=== PATIENT | female | born 1965 | race American Indian/Alaskan Native ===

== ENCOUNTER 2017-06-07 00:34 | Emergency (ER) | payer MEDICARE ==
[2017-06-07 03:21] LABS: Hematocrit 38.4 % (30.3-42.9); Hemoglobin 12.7 gm/dl (10.1-14.3); Mean Corpuscular HGB Conc 33 % (30-34); Mean Corpuscular Hemoglobin 30 pg (28-32); Mean Corpuscular Volume 90 fl (79-97); Platelet Count 176 K/mm3 (140-440); Red Blood Count 4.25 M/mm3 (3.65-5.03); Red Cell Distribution Width 14.7 % (13.2-15.2); White Blood Count 8.1 K/mm3 (4.5-11.0)
[2017-06-07 03:36] LABS: Anion Gap 17 mmol/L; Blood Urea Nitrogen 8 mg/dL (7-17); Carbon Dioxide 23 mmol/L (22-30); Chloride 101.6 mmol/L (98-107); Glucose 99 mg/dL (65-100); Potassium 3.6 mmol/L (3.6-5.0); Sodium 138 mmol/L (137-145)
[2017-06-07 04:22] LABS: Basophils % (Manual) 0 % (0.0-1.8); Blastocytes % (Manual) 0 %
[2017-06-07 04:23] LABS: Diff Status Complete; Platelet Estimate Consistent w Auto
[2017-06-07] MEDS ORDERED: NACL ONE (04:23)
[2017-06-07] MEDS ORDERED: CLEOCIN 900 MG/50 mL 900 MG/50 ML BAG IV ONE (05:40)
--- NOTE | 2017-06-07 05:54 | Cat Scan Report ---
FINAL REPORT EXAM: CT FACIAL BONES W CON HISTORY: Swollen face, Jaw TECHNIQUE: CT images are acquired through the face following intravenous administration contrast. Transaxial , coronal and sagittal reformations are provided. PRIORS: None. FINDINGS: Adjacent to the left maxilla and mandible and anterior to the left masseter muscle there is ill-defined soft tissue edema and stranding. Mild edema is present within the left advertising agency manager space and left parapharyngeal fat. No focal organized fluid collection. The remaining suprahyoid mucosal spaces of the neck are unremarkable. Posterior nasopharynx is unremarkable. No facial fractures. The bony orbits, nasal bones, pterygoid plates, mandible and maxilla are intact. No periosteal reaction identified. The imaged portion of the brain is grossly unremarkable. Normal spherical shape of the globes. No significant abnormality within the imaged paranasal sinuses or mastoid air cells. The cervical spine is intact. Normal caliber and well opacified major vasculature of the neck imaged lung apices are unremarkable. IMPRESSION: Edema superficial to and throughout the left advertising agency manager space without focal fluid collection to suggest abscess formation or maxillary or mandibular periosteal reaction to suggest osseous destruction. Findings may be due to infectious or inflammatory inflammatory etiologies.
[2017-06-07] MEDS ORDERED: BOOSTRIX IM ONE (10:09)
--- NOTE | 2017-06-07 10:09 | Emergency Department Report ---
- General Chief complaint: Skin/Abscess/Foreign Body Stated complaint: HEADACHE & SWELLING TO FACE Time Seen by Provider: 06/07/17 09:36 Source: patient Mode of arrival: Ambulatory Limitations: No Limitations - History of Present Illness Initial comments: This is a 52-year-old female nontoxic, well nourished in appearance, no acute signs of distress presents to the ED complaining of left-sided facial swelling 3 days. Patient states she was seen by dentist and was instructed to follow-up with the emergency room for possible abscess. Patient denies any trauma to the region. Denies fever, chills, nausea, vomiting, chest pain, shortness of breath , numbness or tingling. Patient denies stiff neck. Patient denies drooling, hoarseness or difficulty breathing. Patient states allergies to sulfa and aspirin. Denies past medical history. MD complaint: abscess/boil -: Gradual, days(s) (3) Tetanus Up to Date: no Severity: mild Severity scale (0 -10): 8 Quality: aching Consistency: constant Improves with: none Worsens with: none Associated symptoms: denies other symptoms Treatments Prior to Arrival: none - Related Data Home Medications Medication Instructions Recorded Confirmed Last Taken Cetirizine HCl [ZyrTEC] 1 cap PO DAILY 11/07/13 07/16/14 07/15/14 Pantoprazole [Protonix INJ] 1 tab PO BID 11/07/13 07/16/14 07/15/14 Ciprofloxacin HCl [Ciprofloxacin 1 tab PO BID 07/11/14 07/16/14 07/15/14 TAB] Previous Rx's Medication Instructions Recorded Last Taken Type traMADol [Ultram] 50 mg PO Q4HR PRN #20. tablet 10/14/15 Unknown Rx Amoxicillin/K Clav Tab [Augmentin 1 tab PO Q12HR #20 tab 06/07/17 Unknown Rx 875 mg] Allergies Allergy/AdvReac Type Severity Reaction Status Date / Time aspirin Allergy Rash Verified 11/07/13 16:35 Sulfa (Sulfonamide Allergy Rash Verified 11/07/13 16:35 Antibiotics) Abscess Boil HPI - HPI Chief Complaint: Skin/Abscess/Foreign Body Stated Complaint: HEADACHE & SWELLING TO FACE Time Seen by Provider: 06/07/17 09:36 Home Medications: Home Medications Medication Instructions Recorded Confirmed Last Taken Cetirizine HCl [ZyrTEC] 1 cap PO DAILY 11/07/13 07/16/14 07/15/14 Pantoprazole [Protonix INJ] 1 tab PO BID 11/07/13 07/16/14 07/15/14 Ciprofloxacin HCl [Ciprofloxacin 1 tab PO BID 07/11/14 07/16/14 07/15/14 TAB] Previous Rx's Medication Instructions Recorded Last Taken Type traMADol [Ultram] 50 mg PO Q4HR PRN #20. tablet 10/14/15 Unknown Rx Amoxicillin/K Clav Tab [Augmentin 1 tab PO Q12HR #20 tab 06/07/17 Unknown Rx 875 mg] Allergies/Adverse Reactions: Allergies Allergy/AdvReac Type Severity Reaction Status Date / Time aspirin Allergy Rash Verified 11/07/13 16:35 Sulfa (Sulfonamide Allergy Rash Verified 11/07/13 16:35 Antibiotics) ED Review of Systems ROS: Stated complaint: HEADACHE & SWELLING TO FACE Other details as noted in HPI Constitutional: denies: chills, fever Eyes: denies: eye pain, eye discharge, vision change ENT: denies: ear pain, throat pain Respiratory: denies: cough, shortness of breath, wheezing Cardiovascular: denies: chest pain, palpitations Endocrine: no symptoms reported Gastrointestinal: denies: abdominal pain, nausea, diarrhea Genitourinary: denies: urgency, dysuria, discharge Musculoskeletal: denies: back pain, joint swelling, arthralgia Skin: denies: rash, lesions Neurological: denies: headache, weakness, paresthesias Psychiatric: denies: anxiety, depression Hematological/Lymphatic: denies: easy bleeding, easy bruising ED Past Medical Hx - Past Medical History Previous Medical History?: Yes Additional medical history: IC, GERD. Obesity - Surgical History Past Surgical History?: Yes Hx Cholecystectomy: Yes Additional Surgical History: Breast reduction. Hyst - Social History Smoking Status: Never Smoker Substance Use Type: None - Medications Home Medications: Home Medications Medication Instructions Recorded Confirmed Last Taken Type Cetirizine HCl [ZyrTEC] 1 cap PO DAILY 11/07/13 07/16/14 07/15/14 History Pantoprazole [Protonix INJ] 1 tab PO BID 11/07/13 07/16/14 07/15/14 History Ciprofloxacin HCl [Ciprofloxacin 1 tab PO BID 07/11/14 07/16/14 07/15/14 History TAB] traMADol [Ultram] 50 mg PO Q4HR PRN #20. tablet 10/14/15 Unknown Rx Amoxicillin/K Clav Tab [Augmentin 1 tab PO Q12HR #20 tab 06/07/17 Unknown Rx 875 mg] ED Physical Exam - General Limitations: No Limitations General appearance: alert, in no apparent distress - Head Head exam: Present: atraumatic, normocephalic, normal inspection - Eye Eye exam: Present: normal appearance, PERRL, EOMI. Absent: scleral icterus, conjunctival injection, nystagmus, periorbital swelling, periorbital tenderness Pupils: Present: normal accommodation - ENT ENT exam: Present: normal exam, normal orophraynx, mucous membranes moist, TM's normal bilaterally, normal external ear exam - Expanded ENT Exam Expanded Ear exam: Present: normal external inspection Mouth exam: Present: normal external inspection, tongue normal. Absent: drooling, trismus, muffled voice, tongue elevation, laceration Teeth exam: Present: normal inspection Throat exam: Positive: normal inspection. Negative: tonsillar erythema, tonsillomegaly, tonsillar exudate, R peritonsillar mass, L peritonsillar mass - Neck Neck exam: Present: normal inspection, full ROM. Absent: tenderness, meningismus, lymphadenopathy, thyromegaly - Respiratory Respiratory exam: Present: normal lung sounds bilaterally. Absent: respiratory distress, wheezes, rales, rhonchi, stridor, chest wall tenderness, accessory muscle use, decreased breath sounds, prolonged expiratory - Cardiovascular Cardiovascular Exam: Present: regular rate, normal rhythm, normal heart sounds. Absent: bradycardia, tachycardia, irregular rhythm, systolic murmur, diastolic murmur, rubs, gallop - GI/Abdominal GI/Abdominal exam: Present: soft, normal bowel sounds. Absent: distended, tenderness, guarding, rebound, rigid, diminished bowel sounds - Rectal Rectal exam: Present: deferred - Extremities Exam Extremities exam: Present: normal inspection, full ROM, normal capillary refill. Absent: tenderness, pedal edema, joint swelling, calf tenderness - Back Exam Back exam: Present: normal inspection, full ROM. Absent: tenderness, CVA tenderness (R), CVA tenderness (L), muscle spasm, paraspinal tenderness, vertebral tenderness, rash noted - Neurological Exam Neurological exam: Present: alert, oriented X3, CN II-XII intact, normal gait, reflexes normal - Psychiatric Psychiatric exam: Present: normal affect, normal mood - Skin Skin exam: Present: warm, dry, intact, normal color. Absent: rash - Other Other exam information: Left-sided facial swelling. Tender to touch. No induration or fluctuance was noted. ED Course Vital Signs 06/07/17 06/07/17 02:29 06:41 Temperature 98.1 F Pulse Rate 78 Respiratory 18 18 Rate Blood Pressure 147/84 [Right] O2 Sat by Pulse 99 100 Oximetry - Reevaluation(s) Reevaluation #1: 06/07/17 10:12 Patient speaking in full sentences with no signs of distress. ED Medical Decision Making - Lab Data Result diagrams: 06/07/17 03:06 06/07/17 03:06 - Medical Decision Making This is a 52-year-old female that presents with left abscess that of maxillary or mandibular region. CT scan has been obtained prior to my interview with an impression of abscess to the maxillary or mandible region. Patient was notified of CT findings with no further question about the patient. I instructed patient it is important to have the patient transferred to a [facility] for a incision and drainage due to no ENT or oral maxillary doctor in the hospital. Patient stated she wanted to sign AMA and to drive herself. Patient received clindamycin 900 mg IV by ED prior to my interview. I instructed my concerns about having the patient transferred from the emergency room the patient stated she wanted to leave and signed a drive herself. Patient received Augmentin prior to prior leaving. At time time of AMA , the patient does not seem toxic or ill in appearance. No acute signs of distress noted. Patient agrees to discharge treatment plan of care. No further questions noted by the patient. Critical care attestation.: If time is entered above; I have spent that time in minutes in the direct care of this critically ill patient, excluding procedure time. ED Disposition Clinical Impression: Abscess Disposition: DC-07 LEFT AGAINST MED ADVICE Is pt being admited?: No Does the pt Need Aspirin: No Condition: Stable Instructions: Amoxicillin/Clavulanate Potassium (By mouth), Abscess (ED) Additional Instructions: Your abscess needs to be drained as soon as possible so please go to emergency room with [facility]/karthik turner Dr. to have it incision and drained. This is a life-threatening situation. Please take full course of antibiotics that I prescribed Prescriptions: Amoxicillin/K Clav Tab [Augmentin 875 mg] 1 tab PO Q12HR #20 tab Referrals: [facility] [Outside] - 3-5 Days [facility] [Outside] - 3-5 Days OMID MOORE MD [Staff Physician] - 3-5 Days LINDSEY DOMINGO MD [Staff Physician] - 24 Hours PRIMARY CAREMD [Primary Care Provider] - 3-5 Days Forms: AMA Form
[2017-06-07 11:21] VITALS: BP 135/44
== END 2017-06-07 11:08 | disposition left against medical advice (07) ==
LOC: ED 00:34
DX: L02.01 Cutaneous abscess of face (principal); Z88.2 Allergy status to sulfonamides; Z88.6 Allergy status to analgesic agent; K21.9 Gastro-esophageal reflux disease without esophagitis
CPT/HCPCS: 36415; 70491; 80048; 85007; 85025; 96365; 99284; Q9967; 90715

== ENCOUNTER 2017-06-26 00:37 | Emergency (ER) | payer MEDICARE ==
[2017-06-26 02:01] LABS: Basophils % (Auto) 1.2 % (0.0-1.8); Eosinophils % (Auto) 5.6 % (0.0-4.3); Hematocrit 41.2 % (30.3-42.9); Hemoglobin 13.7 gm/dl (10.1-14.3); Mean Corpuscular HGB Conc 33 % (30-34); Mean Corpuscular Hemoglobin 30 pg (28-32); Mean Corpuscular Volume 91 fl (79-97); Red Blood Count 4.56 M/mm3 (3.65-5.03); Red Cell Distribution Width 15.3 % (13.2-15.2)
[2017-06-26 02:03] LABS: Platelet Count 162 K/mm3 (140-440)
[2017-06-26 02:04] LABS: Anion Gap 20 mmol/L; BUN/Creatinine Ratio 10; Blood Urea Nitrogen 9 mg/dL (7-17); Calcium 9.5 mg/dL (8.4-10.2); Carbon Dioxide 23 mmol/L (22-30); Chloride 103.8 mmol/L (98-107); Glucose 93 mg/dL (65-100); Potassium 4.1 mmol/L (3.6-5.0); Sodium 143 mmol/L (137-145)
[2017-06-26] MEDS: TYLENOL PO ONE (07:15)
--- NOTE | 2017-06-26 10:43 | Emergency Department Report ---
HPI - General Chief Complaint: Skin/Abscess/Foreign Body Time Seen by Provider: 06/26/17 10:26 - HPI HPI: This is a 52-year-old female presents to the emergency department with complaint of some facial swelling to the left cheek and below her left eye. She says that she was at [facility] a few weeks ago in the emergency department and was given IV clindamycin, which got rid of the symptoms, followed by some oral antibiotics for about 7 days. She says that the symptoms came back after the antibiotics are completed. She says that she thinks she had some type of a salivary gland infection at that time that they were treating. She denies any headache, fever, shortness of breath, chest pain, problems swallowing, drooling or trismus. Her primary care physician is Dr. Conroy, but the patient has not seen her regarding her symptoms. No recent travel or sick contacts at home. ED Past Medical Hx - Past Medical History Previous Medical History?: Yes Additional medical history: IC, GERD. Obesity - Surgical History Past Surgical History?: Yes Hx Cholecystectomy: Yes Additional Surgical History: Breast reduction. Hyst - Social History Smoking Status: Never Smoker Substance Use Type: None - Medications Home Medications: Home Medications Medication Instructions Recorded Confirmed Last Taken Type RX: Cetirizine HCl [ZyrTEC] 1 cap PO DAILY 11/07/13 07/16/14 07/15/14 History RX: Pantoprazole [Protonix INJ] 1 tab PO BID 11/07/13 07/16/14 07/15/14 History RX: Ciprofloxacin HCl 1 tab PO BID 07/11/14 07/16/14 07/15/14 History [Ciprofloxacin TAB] traMADol [Ultram] 50 mg PO Q4HR PRN #20. tablet 10/14/15 Unknown Rx Amoxicillin/K Clav Tab [Augmentin 1 tab PO Q12HR #20 tab 06/07/17 Unknown Rx 875 mg] Clindamycin [Clindamycin CAP] 300 mg PO Q8H #21 cap 06/26/17 Unknown Rx ED Review of Systems ROS: Stated complaint: SWELLING TO FACE Other details as noted in HPI Comment: All other systems reviewed and negative Constitutional: denies: chills, fever Eyes: denies: eye pain, eye discharge, vision change ENT: denies: ear pain, throat pain Respiratory: denies: cough, shortness of breath, wheezing Cardiovascular: denies: chest pain, palpitations Gastrointestinal: denies: abdominal pain, nausea, diarrhea Genitourinary: denies: urgency, dysuria, discharge Musculoskeletal: denies: back pain, joint swelling, arthralgia Skin: rash, lesions Neurological: denies: headache, weakness, paresthesias Physical Exam - Physical Exam Vital Signs: Vital Signs 06/26/17 06/26/17 06/26/17 01:01 01:02 05:23 Temperature 98.4 F 97.8 F Pulse Rate 88 61 Respiratory 18 18 Rate Blood Pressure 132/81 131/81 149/58 O2 Sat by Pulse 99 100 Oximetry 06/26/17 07:15 Temperature Pulse Rate Respiratory 18 Rate Blood Pressure O2 Sat by Pulse Oximetry Physical Exam: GENERAL: The patient is well-developed well-nourished. HENT: Normocephalic. Atraumatic. Patient has moist mucous membranes. Oropharynx is clear without tonsillar hypertrophy, erythema or exudates. No drooling or trismus. No palpable parotid or salivary stone. EYES: Extraocular motions are intact. Pupils equal reactive to light bilaterally. NECK: Supple. Trachea is midline. CHEST/LUNGS: Clear to auscultation. There is no respiratory distress noted. HEART/CARDIOVASCULAR: Regular. There is no tachycardia. There is no gallop rub or murmur. ABDOMEN: Abdomen is soft, nontender. Patient has normal bowel sounds. There is no abdominal distention. SKIN: There is a firm, indurated but mobile area to the subcutaneous tissue and is tissue of the left cheek. There is some mild swelling to the inferior portion of the left orbit is soft and does not appear fluctuant. There is some mild darkening of the skin here but no obvious erythema. NEURO: The patient is awake, alert, and oriented. The patient is cooperative. The patient has no focal neurologic deficits. The patient has normal speech. MUSCULOSKELETAL: There is no tenderness or deformity. There is no evidence of acute injury. ED Course Vital Signs 06/26/17 06/26/17 06/26/17 01:01 01:02 05:23 Temperature 98.4 F 97.8 F Pulse Rate 88 61 Respiratory 18 18 Rate Blood Pressure 132/81 131/81 149/58 O2 Sat by Pulse 99 100 Oximetry 06/26/17 07:15 Temperature Pulse Rate Respiratory 18 Rate Blood Pressure O2 Sat by Pulse Oximetry ED Medical Decision Making - Lab Data Result diagrams: 06/26/17 01:25 06/26/17 01:25 - Medical Decision Making This is a 52-year-old female presents to the emergency department with a recurrence of some swelling to the left cheek and underneath her left eye. On physical examination there is a small area of induration that appears to be in these cutaneous tissue of the left cheek but also appears mobile and not significantly tender. The area underneath the eye is soft and appears more consistent with something like a allergic reaction that any cellulitis or abscess formation there. Neither area has significant erythema, warmth and there is no bleeding, weeping or drainage. The patient was adamant that IV clindamycin was what reduce the swelling the last time so she was given 1 dose of this and since I was going to give her an antibiotic, oral clindamycin will be used. She says that she has a follow-up established with a "head and neck Dr." But the patient also has been encouraged to follow up with her PCP and has been given a referral for a cert occupational therapy asst. I gave her explicit instructions on how to use warm compresses and the signs/symptoms in order to return to the emergency department. She acknowledged understanding and agreed to the plan. - Differential Diagnosis cellulitis, abscess, allergic reaction Critical Care Time: No Critical care attestation.: If time is entered above; I have spent that time in minutes in the direct care of this critically ill patient, excluding procedure time. ED Disposition Clinical Impression: Facial swelling, Facial abscess Disposition: - TO HOME OR SELFCARE Is pt being admited?: No Condition: Stable Instructions: Abscess (ED) Additional Instructions: Take the antibiotics as prescribed. Follow-up with your primary care physician in the next few days without fail. I have given you a referral for a local cert occupational therapy asst in case her to follow up regarding the facial skin lesions. I will try a warm, but not hot, compress against your cheek multiple times per day and see if you can bring infection to the surface. Return to the emergency department immediately with any development of fever, worsening of the swelling around the cheek or eye, or any acute distress. Prescriptions: Clindamycin [Clindamycin CAP] 300 mg PO Q8H #21 cap Referrals: ANNABELLA FRANCIS MD [Primary Care Provider] - 3-5 Days JERMAIN YIP MD [Staff Physician] - 3-5 Days Time of Disposition: 12:10
[2017-06-26] MEDS: CLEOCIN 600 MG/50 mL 600 MG/50 ML BAG IV ONE (11:25)
[2017-06-26 12:20] VITALS: BP 136/72
== END 2017-06-26 12:20 | disposition home or self-care (01) ==
LOC: ED 00:37
DX: L02.01 Cutaneous abscess of face (principal); Z88.6 Allergy status to analgesic agent; Z88.2 Allergy status to sulfonamides
CPT/HCPCS: 36415; 80048; 85025; 96365

== ENCOUNTER 2017-08-10 09:53 | Emergency (ER) | payer MEDICARE ==
[2017-08-10 10:59] VITALS: BP 116/73
== END 2017-08-10 12:00 | disposition left against medical advice (07) ==
LOC: ED 09:53
DX: Z53.21 Procedure and treatment not carried out due to patient leaving prior to being seen by health care provider (principal)